=== PATIENT | male | born 1950 | race Caucasian/White ===

== ENCOUNTER 2017-09-17 05:52 | Day surgery (SDC) | payer OTHER ==
[~2017-09-17] VITALS: Ht 175.3 cm; Wt 74.8 kg
[2017-09-17] MEDS ORDERED: LEVOTHYROXIN150 MCG PO (06:16)
[2017-09-17 09:37] VITALS: BP 133/60
== END 2017-09-17 10:32 | DRG 352 ==
LOC: ORM 05:52
PROVIDERS: ATTEND Surgery
PROC: 0YQ50ZZ Repair Right Inguinal Region, Open Approach (ICD-10-PCS; principal; 2017-09-17)
DX: K40.31 Unilateral inguinal hernia, with obstruction, without gangrene, recurrent (principal)
CPT/HCPCS: J2710